=== PATIENT | female | born 1990 | race Caucasian/White ===

== ENCOUNTER 2023-03-04 18:38 | Emergency (ER) | payer SELFPAY ==
[~2023-03-04] VITALS: Ht 149.9 cm; Wt 59.5 kg
[~2023-03-04 18:38] MED LIST: FLEXERIL 1010 MG/TAB PO; PREDNISONE50 MG PO
[2023-03-04 18:46] VITALS: BP 123/82; PULSE 99; TEMP 98.7
== END 2023-03-04 21:15 | disposition left against medical advice (07) ==
LOC: COL.ER 18:38
DX: R58 Hemorrhage, not elsewhere classified (principal)

== ENCOUNTER 2023-04-07 10:14 | Emergency (ER) | payer SELFPAY ==
[~2023-04-07] VITALS: Ht 149.9 cm; Wt 60.0 kg
[2023-04-07 10:18] VITALS: TEMP 98
[2023-04-07 10:54] LABS: COLLECTION METHOD CLEAN CATCH
[2023-04-07 11:00] LABS: BASO % 0.4 % (0.0-2.0); EOS # 0.1 K/mm3 (0.0-0.7); GRAN # 5.1 K/mm3 (1.4-6.5); GRAN % 74.4 % (42.2-75.2); HEMATOCRIT 41.3 % (37.0-47.0); HEMOGLOBIN 13.8 g/dl (12.5-16.0); LYMPH # 1.2 K/mm3 (1.2-3.4); LYMPH % 16.9 % (20.0-51.0); MEAN CELL VOLUME 90 fl (80.0-100.0); MEAN CORPUSCULAR HEMOGLOBIN 30 pg (27-31); MEAN CORPUSCULAR HGB CONC 33 g/dl (33.0-37.0); MEAN PLATELET VOLUME 12.4 fl (7.4-10.4); MONO # 0.5 K/mm3 (0.1-0.6); MONO % 7.2 % (1.7-9.3); PLATELET COUNT 270 K/mm3 (130-400); RED BLOOD COUNT 4.58 M/mm3 (4.10-5.30)
[2023-04-07 11:04] LABS: URINE APPEARANCE Clear (CLEAR/HAZY); URINE COLOR Yellow (YELLOW)
[2023-04-07 11:05] LABS: URINE BLOOD Negative (NEGATIVE); URINE GLUCOSE Negative (NEGATIVE); URINE KETONE Negative (NEGATIVE); URINE NITRATE Negative (NEGATIVE); URINE PROTEIN(semi-quant) Negative (NEGATIVE); URINE RBC 0-2 /hpf (0-2); URINE UROBILINOGEN 0.2 E.U/dL (0.2-1.0)
[2023-04-07 11:21] LABS: ALBUMIN 3.8 gm/dL (3.5-5.0); BILIRUBIN,TOTAL 0.6 mg/dL (0.2-1.2); CALCIUM 8.9 mg/dL (8.4-10.2); CREATININE, serum 0.76 mg/dL (0.57-1.11); POTASSIUM 3.9 mmol/L (3.5-4.5); TOTAL PROTEIN 6.9 gm/dL (6.2-8.1)
[2023-04-07] MEDS ORDERED: NORCO 325 MG-51 TAB PO (12:44)
[2023-04-07] MEDS ORDERED: ZOFRAN 4MG T4 MG/TAB PO (12:51)
[2023-04-07 13:11] VITALS: BP 106/71; PULSE 74
== END 2023-04-07 13:16 | disposition home or self-care (01) ==
LOC: COL.ER 10:14
PROVIDERS: Physician Assistant
DX: R10.11 Right upper quadrant pain (principal); K82.8 Other specified diseases of gallbladder
CPT/HCPCS: J1885; J2405; Q9967

== ENCOUNTER 2023-04-09 08:38 | Observation (INO) | payer SELFPAY ==
[~2023-04-09] VITALS: Ht 149.9 cm; Wt 62.9 kg
[~2023-04-09 08:38] MED LIST changes: +NORCO 325 MG-51 TAB PO; +ZOFRAN 4MG T4 MG/TAB PO
[2023-04-09 09:45] VITALS: BP 127/85; PULSE 81; TEMP 98.1
[2023-04-09 10:43] LABS: BASO % 0.4 % (0.0-2.0); EOS # 0.1 K/mm3 (0.0-0.7); EOS % 0.9 % (0.0-4.0); GRAN # 4.3 K/mm3 (1.4-6.5); GRAN % 77.8 % (42.2-75.2); HEMATOCRIT 41.8 % (37.0-47.0); HEMOGLOBIN 13.9 g/dl (12.5-16.0); LYMPH # 0.8 K/mm3 (1.2-3.4); LYMPH % 14.7 % (20.0-51.0); MEAN CELL VOLUME 91 fl (80.0-100.0); MEAN CORPUSCULAR HEMOGLOBIN 30 pg (27-31); MEAN CORPUSCULAR HGB CONC 33 g/dl (33.0-37.0); MEAN PLATELET VOLUME 13.5 fl (7.4-10.4); MONO # 0.3 K/mm3 (0.1-0.6); PLATELET COUNT 263 K/mm3 (130-400); REDCELL DISTRIBUTION WIDTH-CV 14.1 % (11.5-14.5)
[2023-04-09 10:50] LABS: COLLECTION METHOD CLEAN CATCH
[2023-04-09 10:57] LABS: ALBUMIN 3.7 gm/dL (3.5-5.0); BILIRUBIN,TOTAL 1.4 mg/dL (0.2-1.2); CALCIUM 9.1 mg/dL (8.4-10.2); CREATININE, serum 0.68 mg/dL (0.57-1.11); POTASSIUM 3.9 mmol/L (3.5-4.5); TOTAL PROTEIN 6.8 gm/dL (6.2-8.1)
[2023-04-09 11:12] VITALS: BP 111/76; PULSE 82; TEMP 98.4
[2023-04-09 11:34] LABS: PH 7.5 (5.0-8.5); URINE APPEARANCE Clear (CLEAR/HAZY); URINE BLOOD Negative (NEGATIVE); URINE COLOR Yellow (YELLOW); URINE GLUCOSE Negative (NEGATIVE); URINE KETONE Negative (NEGATIVE); URINE NITRATE Negative (NEGATIVE); URINE PROTEIN(semi-quant) Negative (NEGATIVE); URINE UROBILINOGEN 0.2 E.U/dL (0.2-1.0)
[2023-04-09 11:35] LABS: SQUAMOUS EPITHELIAL 0-2 /hpf (0-10); URINE BACTERIA Rare /hpf (NONE SEEN); URINE RBC None Seen /hpf (0-2)
[2023-04-09 15:33] VITALS: BP 111/78; PULSE 73; TEMP 98
[2023-04-09 17:00] VITALS: BP_SYST 111
[2023-04-09 19:06] VITALS: BP 118/79; PULSE 71; TEMP 98.1
[2023-04-09 21:15] VITALS: BP_SYST 118
--- NOTE | 2023-04-09 21:18 | NUR ---
PT A&OX4 LAYING IN BED. VSS. DENYING N/V & STATES ABD PAIN IS 6/10, GIVEN PRN PER PT REQUEST. LR INFUSING @125 TO LEFT FOREARM. EDUCATED PT ON NPO AT MIDNIGHT & PT VERBALIZES UNDERSTANDING. CALL LIGHT IN REACH & DENYING FURTHER NEEDS.
[2023-04-10] VITALS (14 sets, daily range): BP systolic 94–134; BP diastolic 52–81; PULSE 56–105; TEMP 97.6–98.8
--- NOTE | 2023-04-10 05:31 | NUR ---
PT RESTING IN BED WITH EVEN & UNLABORED RESP. NO FURTHER C/O PAIN OR N/V. CALL LIGHT IN REACH.
[2023-04-10 07:15] LABS: ALBUMIN 2.8 gm/dL (3.5-5.0); BILIRUBIN,TOTAL 1.1 mg/dL (0.2-1.2); CALCIUM 8.1 mg/dL (8.4-10.2); CREATININE, serum 0.65 mg/dL (0.57-1.11); POTASSIUM 3.8 mmol/L (3.5-4.5)
--- NOTE | 2023-04-10 08:30 | NUR ---
PT UP TO BR VOIDED AND RETURNED TO BED WITH SBAX1. PT REPORTING NAUSEA THIS AM. ZOFRAN GIVEN PER ORDERS.
--- NOTE | 2023-04-10 09:16 | NUR ---
electrical linesworker met with pt and spouse, Radha Diaz [phone] at bedside to complete discharge planning. Patient recently moved to [place] and lives with her spouse. She does not have a PCP, SW provided her with a list. She obtains medications from [facility] with no difficulties. She is independent with ADLS and uses no DME. She does not have a DPOA-HC and declined one at this time. She intends to return home at discharge. Pt reports she applied for [place] Medicaid and was denied. GEOVANY spoke with Event Marketing Representative Madelyn who informed GEOVANY pt has [place] Medicaid. Madelyn said she will meet with pt shortly. Discharge Plan: Home
[2023-04-10] MEDS ORDERED: VITAMIN D 50,1.25 MG PO (09:32)
[2023-04-10] MEDS ORDERED: ENSKYCE 0.15 MG1 TAB PO (09:34)
--- NOTE | 2023-04-10 09:54 | NUR ---
Initial visit; Patient thanked Director Validation for looking in on her and stated that she is doing a little better though has some pain. Director Validation offered Spiritual Care to her and her .
--- NOTE | 2023-04-10 11:08 | NUR ---
PT TO SURGEY AT THIS TIME PER BED WITH
[2023-04-10] MEDS ORDERED: NORCO 325 MG-51 TAB PO (13:06)
--- NOTE | 2023-04-10 14:01 | NUR ---
PT TO ROOM 322 PER BED WITH REPORT FROM BAIRON STEREO OPERATOR @[id number]. PT IS A/O X4, LUNGS CTA, BAND AIDS OVER LAP SITES X3. PT RATING PAIN AT 6/10. AT BEDSIDE. VSS, DISCHARGE ORDERS RECIEVED.
--- NOTE | 2023-04-10 17:17 | NUR ---
CRITERIA MET. DISCHARGE INSTRUCTIONS REVIEWED WITH PT AND FAMILY. PT LEFT FLOOR VIA WHEEL CHAIR WITH STAFF.
== END 2023-04-10 17:19 | disposition home or self-care (01) ==
LOC: COL.RAD 08:38 → SURG 09:38
PROVIDERS: ADMIT Surgery
DX: K80.12 Calculus of gallbladder with acute and chronic cholecystitis without obstruction (principal)
CPT/HCPCS: G0378; J0665; J0690; J0696; J1100; J1170; J1885; J2405; J2704; J3010; J7120

== ENCOUNTER 2023-11-01 10:38 | Emergency (ER) | payer MEDICAID ==
[~2023-11-01] VITALS: Ht 149.9 cm; Wt 77.3 kg
[~2023-11-01 10:38] MED LIST changes: +ENSKYCE 0.15 MG1 TAB PO; +VITAMIN D 50,1.25 MG PO
[2023-11-01] MEDS ORDERED: Ketorolac 30 MG/ML VIAL IM ONE (11:45)
[2023-11-01] MEDS ORDERED: FLEXERIL 1010 MG/TAB PO (13:00)
[2023-11-01 13:14] VITALS: BP 107/73; PULSE 75; TEMP 97.7
== END 2023-11-01 13:14 | disposition home or self-care (01) ==
LOC: COL.ER 10:38
DX: M54.50 Low back pain, unspecified (principal)
CPT/HCPCS: J1885; J2360

== ENCOUNTER 2023-11-24 15:51 | Emergency (ER) | payer MEDICAID ==
[~2023-11-24] VITALS: Ht 149.9 cm; Wt 77.3 kg
[2023-11-24 15:53] VITALS: TEMP 98.2
[2023-11-24 16:29] LABS: BASO % 0.6 % (0.0-2.0); EOS # 0.1 K/mm3 (0.0-0.7); EOS % 1.2 % (0.0-4.0); GRAN # 3.9 K/mm3 (1.4-6.5); GRAN % 61.3 % (42.2-75.2); HEMATOCRIT 41.8 % (37.0-47.0); HEMOGLOBIN 14.1 g/dl (12.5-16.0); LYMPH # 1.7 K/mm3 (1.2-3.4); LYMPH % 26.3 % (20.0-51.0); MEAN CELL VOLUME 90 fl (80.0-100.0); MEAN CORPUSCULAR HEMOGLOBIN 30 pg (27-31); MEAN CORPUSCULAR HGB CONC 34 g/dl (33.0-37.0); MEAN PLATELET VOLUME 12.4 fl (7.4-10.4); MONO # 0.7 K/mm3 (0.1-0.6); MONO % 10.4 % (1.7-9.3); PLATELET COUNT 225 K/mm3 (130-400); RED BLOOD COUNT 4.64 M/mm3 (4.10-5.30); REDCELL DISTRIBUTION WIDTH-CV 12.8 % (11.5-14.5)
[2023-11-24] MEDS ORDERED: NS 1,000 ML IV ONE (16:45)
[2023-11-24 16:49] LABS: ALBUMIN 3.7 g/dL (3.5-5.0); BILIRUBIN,TOTAL 0.4 mg/dL (0.2-1.2); CALCIUM 9.2 mg/dL (8.4-10.2); CREATININE, serum 0.93 mg/dL (0.57-1.11); POTASSIUM 3.8 mEq/L (3.5-4.5); TOTAL PROTEIN 6.7 g/dl (6.2-8.1)
[2023-11-24] MEDS ORDERED: Ketorolac 30 MG/ML VIAL IV ONE (17:00)
[2023-11-24 17:13] LABS: COLLECTION METHOD CLEAN CATCH
[2023-11-24 17:30] LABS: PH 7.5 (5.0-8.5); URINE APPEARANCE CLEAR (CLEAR/HAZY); URINE BLOOD TRACE (NEGATIVE); URINE COLOR YELLOW (YELLOW); URINE GLUCOSE NEGATIVE (NEGATIVE); URINE KETONE NEGATIVE (NEGATIVE); URINE NITRATE NEGATIVE (NEGATIVE); URINE PROTEIN(semi-quant) NEGATIVE (NEGATIVE); URINE UROBILINOGEN 0.2 E.U/dL (0.2-1.0)
[2023-11-24 18:36] VITALS: BP 114/86; PULSE 64
== END 2023-11-24 18:43 | disposition home or self-care (01) ==
LOC: COL.ER 15:51
PROVIDERS: Physician Assistant
DX: N93.8 Other specified abnormal uterine and vaginal bleeding (principal)
CPT/HCPCS: J1885; J7030

== ENCOUNTER 2023-12-01 15:17 | Emergency (ER) | payer MEDICAID ==
[~2023-12-01] VITALS: Ht 149.9 cm; Wt 77.3 kg
[2023-12-01 15:20] VITALS: TEMP 98.1
[2023-12-01] MEDS ORDERED: NS 1,000 ML IV ONE (15:45)
[2023-12-01] MEDS ORDERED: Ondansetron 4 MG/2 ML VIAL IV ONE (15:45)
[2023-12-01 16:06] LABS: COLLECTION METHOD CLEAN CATCH
[2023-12-01 16:10] LABS: BASO % 0.4 % (0.0-2.0); EOS # 0.1 K/mm3 (0.0-0.7); EOS % 1.1 % (0.0-4.0); GRAN # 6.5 K/mm3 (1.4-6.5); GRAN % 70.8 % (42.2-75.2); HEMOGLOBIN 14.8 g/dl (12.5-16.0); LYMPH # 1.8 K/mm3 (1.2-3.4); LYMPH % 19.3 % (20.0-51.0); MEAN CELL VOLUME 91 fl (80.0-100.0); MEAN CORPUSCULAR HEMOGLOBIN 31 pg (27-31); MEAN CORPUSCULAR HGB CONC 34 g/dl (33.0-37.0); MONO # 0.8 K/mm3 (0.1-0.6); MONO % 8.2 % (1.7-9.3); PLATELET COUNT 263 K/mm3 (130-400); RED BLOOD COUNT 4.71 M/mm3 (4.10-5.30); REDCELL DISTRIBUTION WIDTH-CV 13.2 % (11.5-14.5)
[2023-12-01 16:12] LABS: URINE APPEARANCE CLEAR (CLEAR/HAZY); URINE BLOOD NEGATIVE (NEGATIVE); URINE COLOR YELLOW (YELLOW); URINE GLUCOSE NEGATIVE (NEGATIVE); URINE KETONE NEGATIVE (NEGATIVE); URINE NITRATE NEGATIVE (NEGATIVE); URINE PROTEIN(semi-quant) NEGATIVE (NEGATIVE)
[2023-12-01 16:28] LABS: ALBUMIN 3.8 g/dL (3.5-5.0); BILIRUBIN,TOTAL 0.6 mg/dL (0.2-1.2); CALCIUM 9.7 mg/dL (8.4-10.2); CREATININE, serum 0.87 mg/dL (0.57-1.11); POTASSIUM 3.7 mEq/L (3.5-4.5); TOTAL PROTEIN 7.3 g/dl (6.2-8.1)
[2023-12-01] MEDS ORDERED: Ketorolac 15 MG/ML VIAL IV ONE (17:00)
[2023-12-01 17:41] VITALS: BP 101/58; PULSE 74
[2023-12-01] MEDS ORDERED: TRIAMCINOLONE A15 G3 TP (17:46)
== END 2023-12-01 17:44 | disposition home or self-care (01) ==
LOC: COL.ER 15:17
PROVIDERS: Physician Assistant
DX: R10.84 Generalized abdominal pain (principal); M54.50 Low back pain, unspecified
CPT/HCPCS: J1885; J2360; J2405; J7030

== ENCOUNTER 2024-01-30 17:09 | Emergency (ER) | payer MEDICAID ==
[~2024-01-30] VITALS: Ht 149.9 cm; Wt 81.8 kg
[~2024-01-30 17:09] MED LIST changes: +TRIAMCINOLONE A15 G3 TP
[2024-01-30 17:21] VITALS: TEMP 98.4
[2024-01-30] MEDS ORDERED: NS 1,000 ML IV ONE (19:00)
[2024-01-30] MEDS ORDERED: diphenhydrAMINE 50 MG/ML 1 ML VIAL IV ONE (19:00)
[2024-01-30 19:23] LABS: BASO % 0.4 % (0.0-2.0); EOS % 0.4 % (0.0-4.0); GRAN # 6.7 K/mm3 (1.4-6.5); GRAN % 73.9 % (42.2-75.2); HEMOGLOBIN 15.3 g/dl (12.5-16.0); LYMPH # 1.5 K/mm3 (1.2-3.4); LYMPH % 16.4 % (20.0-51.0); MEAN CELL VOLUME 91 fl (80.0-100.0); MEAN CORPUSCULAR HEMOGLOBIN 31 pg (27-31); MEAN CORPUSCULAR HGB CONC 34 g/dl (33.0-37.0); MONO # 0.8 K/mm3 (0.1-0.6); MONO % 8.7 % (1.7-9.3); PLATELET COUNT 240 K/mm3 (130-400); RED BLOOD COUNT 4.95 M/mm3 (4.10-5.30); REDCELL DISTRIBUTION WIDTH-CV 12.7 % (11.5-14.5)
[2024-01-30 19:49] LABS: BILIRUBIN,TOTAL 0.8 mg/dL (0.2-1.2); C-REACTIVE PROTEIN 0.23 mg/dL (0.00-0.50); CALCIUM 9.8 mg/dL (8.4-10.2); CREATININE, serum 0.77 mg/dL (0.57-1.11); POTASSIUM 3.7 mEq/L (3.5-4.5); TOTAL PROTEIN 7.5 g/dl (6.2-8.1)
[2024-01-30] MEDS ORDERED: Ketorolac 30 MG/ML VIAL IV ONE (20:00)
[2024-01-30 21:41] VITALS: BP 131/86; PULSE 71
== END 2024-01-30 21:41 | disposition home or self-care (01) ==
LOC: COL.ER 17:09
PROVIDERS: Nurse Practitioner
DX: R51.9 Headache, unspecified (principal)
CPT/HCPCS: J1200; J1885; J2765; J7030

== ENCOUNTER → 2024-02-06 | Outpatient (RCR) | payer MEDICAID | END | disposition home or self-care (01) | LOC: WSPT | DX: M24.411 Recurrent dislocation, right shoulder (principal) ==

== ENCOUNTER 2024-02-21 11:15 | Outpatient (RCR) | payer MEDICAID | END 2024-03-07 | LOC: WSPT | DX: M24.411 Recurrent dislocation, right shoulder (principal) ==